=== PATIENT | female | born 1945 | race Caucasian/White ===

== ENCOUNTER 2016-12-05 15:30 | Inpatient (IN) | payer OTHER ==
[~2016-12-05] VITALS: Ht 162.6 cm; Wt 97.1 kg
--- NOTE | ~2016-12-05 | 2DMMODE ---
[facility] [address] [facility] [place] [address] 2 D/M-MODE ECHOCARDIOGRAM Name: PETEY ANDRADE Room #: 205-P [facility] IN ..#: [id number] Admission: 12/05/16 Attend Phys: Briana Ludwig MD Discharge: Date of : 43 Date of Service: 12/06/16 1543 Report #: [id number] THIS REPORT FOR: //name// APPROVED REPORT Study performed: 12/06/2016 13:35:26 EXAM: Comprehensive 2D, Doppler, and color-flow Echocardiogram Patient Location: Bedside Room #: 205 Status: routine Other Information Study Quality: Adequate Indications COPD Dyspnea Chest Pain Hypertension/HDD 2D Dimensions LVEF(%): 60.30 (>50%) IVSd: 9.94 (7-11mm) LVOT Diam: 19.86 (18-24mm) LVDd: 45.31 mm PWd: 10.03 (7-11mm) Ascending Ao: 33.15 (22-36mm) LVDs: 30.79 (25-40mm) Aortic Root: 27.09 mm IVC: 20.00 mm Peoples's LVEF: 60.30 % Volumes Left Atrial Volume (Systole) Single Plane 4CH: 54.54 mL Single Plane 2CH: 37.61 mL LA ESV Index: 24.00 mL/m2 Aortic Valve AoV Peak Sreedhar.: 1.53 m/s AO Peak Gr.: 9.31 mmHg LVOT Max P.45 mmHg LVOT Max V: 1.27 m/s LUIS Vmax: 2.58 cm2 Mitral Valve E/A Ratio: 1.1 MV Decel. Time: 275.97 ms MV E Max Sreedhar.: 1.20 m/s [facility] [address] [place] [address] 2 D/M-MODE ECHOCARDIOGRAM Name: LUPEPETEY Benitez Room #: [address] [place] [address]#: [id number] Admission: 12/05/16 Attend Phys: Briana Ludwig MD Discharge: Date of : 43 Date of Service: 12/06/16 1543 Report #: [id number] A Sreedhar.: 1.06 m/s MV PHT: 80.03 ms IVRT: 96.89 ms Pulmonary Valve PV Peak Sreedhar.: 0.97 m/s PV Peak Gr.: 3.79 mmHg Pulmonary Vein P Vein S: 0.66 m/s P Vein A: 0.21 m/s P Vein D: 0.47 m/s P Vein A Dur.: 120.0 msec P Vein S/D Ratio: 1.40 Tricuspid Valve RAP Estimate: 10.00 mmHg Left Ventricle The left ventricle is normal size. There is normal left ventricular wall thickness. The left ventricular systolic function is normal. The left ventricular ejection fraction is within the normal range. LVEF is 60-65%. The left ventricular diastolic function is normal. Right Ventricle The right ventricle is normal size. The right ventricular systolic function is normal. Atria The left atrium size is normal. The right atrium size is normal. Aortic Valve The aortic valve is normal in structure. No aortic regurgitation is present. There is no aortic valvular stenosis. Mitral Valve The mitral valve is normal in structure. There is no mitral valve regurgitation noted. No evidence of mitral valve stenosis. Tricuspid Valve The tricuspid valve is normal in structure. There is no tricuspid valve regurgitation noted. Pulmonic Valve The pulmonary valve is normal in structure. There is no pulmonic valvular regurgitation. Great Vessels [facility] [address] [place] [address] 2 D/M-MODE ECHOCARDIOGRAM Name: PETEY ANDRADE Room #: 205-P [facility] IN ..#: [id number] Admission: 12/05/16 Attend Phys: Briana Ludwig MD Discharge: Date of : 43 Date of Service: 12/06/16 1543 Report #: [id number] The aortic root is normal in size. IVC is dilated and collapses >50% with inspiration. Pericardium There is no pericardial effusion. <Conclusion> The left ventricle is normal size. LVEF is 60-65%. The aortic valve is normal in structure. The mitral valve is normal in structure. The tricuspid valve is normal in structure. The pulmonary valve is normal in structure. <ELECTRONICALLY SIGNED> By: Dao Bergeron MD 12/06/16 1543 1543 1543 Dao Bergeron MD /INF
--- NOTE | ~2016-12-05 | EKG ---
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 : 1945 Requested By: Nikolay Strange Order Number: [id number] MD: Latrell Branch Measurements Intervals [place] Rate: 81 P: 24 WI: 181 QRS: 39 QRSD: 94 T: 43 QT: 431 QTc: 501 Interpretive Statements Sinus rhythm Prolonged QT interval Nonspecific ST segment abnormality No previous ECG available for comparison Electronically Signed On 12-06-2016 7:55:45 CDT by Latrell Branch [email or web address] <ELECTRONICALLY SIGNED> By: Latrell Branch MD, [facility] 12/06/16 0755 1557 1557 Latrell Branch MD, FACC /EPI
--- NOTE | ~2016-12-05 | EKG ---
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
--- NOTE | ~2016-12-05 | HC ---
[facility] [place] [address] CONSULTATION Name: PETEY ANDRADE Room #: 205-P ADM IN M.R.#: [id number] Admission: 12/05/16 Attend Phys: Briana Ludwig MD Discharge: Date of : 43 Report #: [id number] THIS REPORT FOR: //name// CC: Yared MASTERS DATE OF SERVICE: 12/05/2016 REASON FOR CONSULTATION: Pneumonia. IMPRESSION: 1. Community-acquired pneumonia, possible viral. 2. Hoarseness, again viral possibility. 3. Elevated D-dimer. 4. Probable chronic obstructive pulmonary disease. 5. Leukocytosis. 6. Obstructive sleep apnea. 7. Hypokalemia. 8. Acute hypoxic respiratory failure. 9. Chronic pain. 10. Hypertension. 11. Insomnia. 12. Gastroesophageal reflux disease. PLAN: Agree with antibiotics, IV fluids. D-dimer was elevated. We will do CT PE protocol and venous Doppler of lower extremities. We will do viral panel, urine strep and Legionella. We will also do a urine histology. We will monitor cardiac status during periods. We will use auto-titrating CPAP or BiPAP at night. HISTORY OF PRESENT ILLNESS: A very pleasant 71-year-old female, visiting daughter whose son is getting from [place]. When she came, she had some cough and chest congestion, felt to be allergies; however, today, at , brought to an urgent care clinic and brought over to the hospital. Complained of occasional chest pain. No definite nausea or vomiting. ALLERGIES: TORADOL, CIPRO, CODEINE and AZITHROMYCIN. FAMILY HISTORY: Negative history of DVT or PE. SOCIAL HISTORY: Positive tobacco, quit 3 years ago. Rare ETOH. HOME MEDICATIONS: Included gabapentin, amlodipine, lovastatin, citalopram, trazodone, omeprazole, Naprosyn, Trusopt, brimonidine, calcium, vitamin D3, glucosamine and aspirin. [facility] [address] [place] [address] CONSULTATION Name: PETEY ANDRADE Room #: 205-P [facility] IN [facility].#: [id number] Admission: 12/05/16 Attend Phys: Briana Ludwig MD Discharge: Date of : 43 Report #: [id number] PAST MEDICAL HISTORY: . PAST SURGICAL HISTORY: Hip replacement. REVIEW OF SYSTEMS: Positive fever, weakness. Did have a fall today, did have a fall in the past with traumatic brain injury. Positive history of depression. History of fibromyalgia. This all started with some head congestion, cough and nasal discharge. It does not bring out anything discolored at present. Has had a headache, cough and shortness breath. No hemoptysis, hematemesis or hematuria. Positive GERD. No dysuria. Positive myalgias and headache. PHYSICAL EXAMINATION: NECK: On exam, negative JVD. HEENT: Posterior pharynx Mallampati 4. No thrush. LUNGS: Showed decreased breath sounds, coarse. HEART: Regular, tachycardic. ABDOMEN: Bowel sounds present. EXTREMITIES: Showed left great foot drop. No cyanosis or edema. VITAL SIGNS: T-max 99.4, pulse 67, respirations 18 and BP 148/63. LABORATORY DATA: Chest x-ray showed right medial lower lung infiltrate and left perihilar interstitial infiltrates. Potassium 3.0, BUN 11 and creatinine 0.9. White count 13.4, hemoglobin 14, platelets 182,000 and bands were 2. Lactate 0.8. A pH of 7.516, pCO2 of 30 and pO2 of 69 on 2 liters. Liver profile showed SGPT 27. Albumin 3. D-dimer 1.17. I appreciate the opportunity to assist in the care of your patient. By: [id number] Yared Broderick MD /nt
[2016-12-05 15:33] VITALS: BP 169/87
[2016-12-05] MEDS ORDERED: LOVASTATIN 20 M20 MG PO (16:09)
[2016-12-05] MEDS ORDERED: NEURONTIN 300300 M1 PO (16:09)
[2016-12-05] MEDS ORDERED: MAXZIDE-25 MG1 EACH PO (16:09)
[2016-12-05] MEDS ORDERED: NORVASC5 MG PO (16:09)
[2016-12-05] MEDS ORDERED: CELEXA20 MG PO (16:09)
[2016-12-05] MEDS ORDERED: NAPROSYN500 MG PO (16:10)
[2016-12-05] MEDS ORDERED: PRILOSEC 20 MG20 MG PO (16:10)
[2016-12-05] MEDS ORDERED: TRAZODONE HCL100 MG PO (16:10)
[2016-12-05] MEDS ORDERED: KETOROLAC 0.5% E5 ML OP (16:11)
[2016-12-05] MEDS ORDERED: CALCIUM500 M1 PO (16:11)
[2016-12-05] MEDS ORDERED: TRUSOPT5 ML OP (16:11)
[2016-12-05] MEDS ORDERED: BRIMONIDINE TAR1 BO1 OP (16:11)
[2016-12-05] MEDS ORDERED: KLOR-CON 1010 MEQ PO (16:12)
[2016-12-05] MEDS ORDERED: BIOTIN1 M1 PO (16:12)
[2016-12-05] MEDS ORDERED: GLUCOSAMINE HC500 MG PO (16:12)
[2016-12-05] MEDS ORDERED: VITAMIN D400 UNI2 PO (16:12)
[2016-12-05] MEDS ORDERED: ASPIRIN81 M2 PO (16:12)
[2016-12-05 16:14] LABS: HEMATOCRIT 40.3 % (37.0-47.0); MCH 32.1 pg (26.0-34.0); MCHC 34.7 g/dL (28.0-37.0); MCV 92.6 fL (80.0-100.0); PLATELET COUNT 182 thou/uL (150-400); RBC 4.36 mil/uL (4.20-5.00); RDW 12.7 % (10.5-14.5); WBC 13.4 thou/uL (4.0-11.0)
[2016-12-05 16:17] LABS: MANUAL DIFF YES
[2016-12-05 16:22] LABS: ANION GAP 9 mmol/L (7-16); BUN 11 mg/dL (7-18); CALCIUM 9.3 mg/dL (8.5-10.1); CHLORIDE 102 mmol/L (98-107); CO2 28 mmol/L (21-32); CREATININE 0.9 mg/dL (0.6-1.0); GLUCOSE 122 mg/dL (74-106); SODIUM 139 mmol/L (136-145)
[2016-12-05 16:30] LABS: TROPONIN-I < 0.04 ng/mL (<0.04-0.07)
[2016-12-05 16:40] LABS: ABSOLUTE NEUTROPHILS 9.6 thou/uL (1.4-8.2); TOTAL CELL COUNT 100
[2016-12-05 16:41] LABS: ANISOCYTOSIS 1+; POLYCHROMASIA OCCASIONAL
[2016-12-05 17:58] LABS: ABG SAMPLE TYPE ARTERIAL; BE(vivo) 1.8 mmol/L (-2 to +3); HCO3 23.8 mmol/L (22.0-26.0); LACTATE 1.06 mmol/L (0.5-2.0); O2(CT) 18.2 mL/dL (15.0-23.0); O2Hb 92.9 % (92.0-98.0); PCO2 30.1 mmHg (35.0-45.0); PO2 69.4 mmHg (80.0-100.0); STICK SITE L.RADIAL; pH 7.516 (7.360-7.450); sO2 95.6 % (92.0-98.0); tCO2 24.7 mmol/L (24.0-30.0)
[2016-12-05 20:22] VITALS: BP 148/63
[2016-12-05 21:13] LABS: DIRECT BILIRUBIN 0.1 mg/dL (<0.1-0.3); TOTAL BILIRUBIN 0.5 mg/dL (<0.1-1.0); TOTAL PROTEIN 6.4 g/dL (6.4-8.2)
[2016-12-05 22:38] LABS: CALCIUM 8.9 mg/dL (8.5-10.1); POTASSIUM 3.1 mmol/L (3.5-5.1)
[2016-12-06 00:11] VITALS: BP 146/65
[2016-12-06 04:11] LABS: ABSOLUTE NEUTROPHILS 8.9 thou/uL (1.4-8.2); BASOPHILS 0.1 % (0.0-2.0); EOSINOPHILS 0.6 % (0.0-3.0); HEMATOCRIT 35.8 % (37.0-47.0); HEMOGLOBIN 12.4 gm/dL (12.0-15.0); LYMPHOCYTES 20.9 % (24.0-44.0); MCH 32.6 pg (26.0-34.0); MCHC 34.6 g/dL (28.0-37.0); MONOCYTES 6.4 % (1.0-8.0); PLATELET COUNT 164 thou/uL (150-400); RBC 3.81 mil/uL (4.20-5.00); RDW 13.1 % (10.5-14.5); WBC 12.4 thou/uL (4.0-11.0)
[2016-12-06 04:12] LABS: MANUAL DIFF NO
[2016-12-06 04:17] VITALS: BP 134/57
[2016-12-06 04:21] LABS: CALCIUM 8.8 mg/dL (8.5-10.1); CREATININE 0.9 mg/dL (0.6-1.0); MAGNESIUM 1.8 mg/dL (1.8-2.4); POTASSIUM 3.5 mmol/L (3.5-5.1)
[2016-12-06 08:11] VITALS: BP 13/75
[2016-12-06 10:51] LABS: ABG SAMPLE TYPE ARTERIAL; BE(vivo) 1.9 mmol/L (-2 to +3); HCO3 25.2 mmol/L (22.0-26.0); LACTATE 1.34 mmol/L (0.5-2.0); O2(CT) 15.7 mL/dL (15.0-23.0); O2Hb 90.9 % (92.0-98.0); PCO2 35.3 mmHg (35.0-45.0); PO2 58.6 mmHg (80.0-100.0); STICK SITE L.BRACHIAL; pH 7.472 (7.360-7.450); sO2 92.2 % (92.0-98.0); tCO2 26.3 mmol/L (24.0-30.0)
[2016-12-06 12:34] VITALS: BP 159/69
[2016-12-06 17:50] VITALS: BP 148/86
[2016-12-06 19:33] VITALS: BP 155/75
[2016-12-07 03:44] LABS: HEMATOCRIT 37.4 % (37.0-47.0); HEMOGLOBIN 12.7 gm/dL (12.0-15.0); MCH 32.2 pg (26.0-34.0); MCV 94.8 fL (80.0-100.0); RBC 3.95 mil/uL (4.20-5.00); RDW 13.3 % (10.5-14.5); WBC 10.9 thou/uL (4.0-11.0)
[2016-12-07 03:51] LABS: CALCIUM 9.2 mg/dL (8.5-10.1); CREATININE 0.8 mg/dL (0.6-1.0); POTASSIUM 3.8 mmol/L (3.5-5.1)
[2016-12-07 03:53] VITALS: BP 168/76
[2016-12-07 04:30] VITALS: BP 159/65
[2016-12-07 07:50] VITALS: BP 157/83
[2016-12-07 12:10] VITALS: BP 142/73
[2016-12-07 16:55] VITALS: BP 165/76
[2016-12-07 19:57] VITALS: BP 159/79
[2016-12-08 03:36] VITALS: BP 158/78
[2016-12-08 03:59] LABS: CALCIUM 9.3 mg/dL (8.5-10.1); CREATININE 0.9 mg/dL (0.6-1.0); POTASSIUM 4.4 mmol/L (3.5-5.1)
[2016-12-08 04:34] LABS: HEMATOCRIT 38.8 % (37.0-47.0); HEMOGLOBIN 13.3 gm/dL (12.0-15.0); MCH 32.4 pg (26.0-34.0); MCHC 34.2 g/dL (28.0-37.0); MCV 94.7 fL (80.0-100.0); RBC 4.09 mil/uL (4.20-5.00); WBC 10.6 thou/uL (4.0-11.0)
[2016-12-08 07:35] VITALS: BP 130/58
[2016-12-08 13:25] VITALS: BP 143/63
[2016-12-08 16:38] VITALS: BP 148/65
[2016-12-08 20:13] VITALS: BP 131/55
[2016-12-08 21:11] LABS: INFLUENZA B Negative (Negative); METAPNEUMOVIRUS Negative (Negative)
[2016-12-09 04:03] VITALS: BP 214/74
[2016-12-09 07:35] VITALS: BP 153/69
[2016-12-09] MEDS ORDERED: TUSSIONEX PENNKI1 ML PO (11:31)
[2016-12-09] MEDS ORDERED: DOXYCYCLINE 10100 MG PO (11:31)
[2016-12-09] MEDS ORDERED: BENZONATATE100 MG PO (11:31)
[2016-12-09 11:40] VITALS: BP 159/65
[2016-12-09 11:50] VITALS: BP 153/69
[2016-12-09 11:56] VITALS: BP 153/69
[2016-12-09 12:00] VITALS: BP 153/69
== END 2016-12-09 13:50 | disposition home or self-care (01) | DRG 871 ==
LOC: ER 15:30 → EROBS 17:01 → ER 17:01 → 2N 18:12 → EROBS 18:12 → 2N 19:15
PROVIDERS: Hospitalist; Internal Medicine Endocrinology, Diabetes & Metabolism; Internal Medicine Pulmonary Disease; Physician Assistant
DX: A41.9 Sepsis, unspecified organism (principal); J96.01 Acute respiratory failure with hypoxia; J12.89 Other viral pneumonia; J44.1 Chronic obstructive pulmonary disease with (acute) exacerbation; J44.0 Chronic obstructive pulmonary disease with (acute) lower respiratory infection; F32.9 Major depressive disorder, single episode, unspecified; I10 Essential (primary) hypertension; E87.6 Hypokalemia; R49.0 Dysphonia; G47.33 Obstructive sleep apnea (adult) (pediatric); G89.29 Other chronic pain; G47.00 Insomnia, unspecified; K21.9 Gastro-esophageal reflux disease without esophagitis; E66.3 Overweight; Z68.36 Body mass index [BMI] 36.0-36.9, adult; Z79.82 Long term (current) use of aspirin; Z79.899 Other long term (current) drug therapy; Z88.6 Allergy status to analgesic agent; Z88.1 Allergy status to other antibiotic agents; Z87.891 Personal history of nicotine dependence; Z82.49 Family history of ischemic heart disease and other diseases of the circulatory system; Z82.5 Family history of asthma and other chronic lower respiratory diseases
CPT/HCPCS: 10081